=== PATIENT | female | born 1985 | race Caucasian/White ===

== ENCOUNTER 2021-12-13 10:13 | Day surgery (SDC) | payer BC ==
[2021-12-12 09:13] LABS: BASOPHILS % (AUTO) 0.4 % (0.0-2.0); EOSINOPHILS # (AUTO) 0.1 K/uL (0-0.4); EOSINOPHILS % (AUTO) 1.3 % (0.0-4.0); HEMATOCRIT 39.3 % (36-48); HEMOGLOBIN 12.7 g/dL (12.0-16.0); LYMPHOCYTES # (AUTO) 1.7 K/uL (2.5-16.5); MEAN CORPUSCULAR HEMOGLOBIN 26 pg (27-31); MEAN CORPUSCULAR HGB CONC 32 g/dL (33-37); MEAN CORPUSCULAR VOLUME 80.2 fL (80-94); MONOCYTES # (AUTO) 0.3 K/uL (0.8-1.0); MONOCYTES % (AUTO) 4.9 % (1.7-9.3); NEUTROPHILS # (AUTO) 3.3 K/uL (1.8-7.7); NEUTROPHILS % (AUTO) 62.4 % (42.2-75.2); PLATELET COUNT (AUTO) 256 K/uL (140-450); RED BLOOD CELL COUNT(AUTO) 4.91 MIL/uL (4.20-5.40); RED CELL DISTRIBUTION WIDTH 15.4 % (11.6-13.7); WHITE BLOOD COUNT (AUTO) 5.3 K/uL (4.8-10.8)
[2021-12-12 09:35] LABS: ALBUMIN 3.9 g/dL (3.4-5.0); CARBON DIOXIDE 28.1 mmol/L (21-32); CREATININE 0.6 mg/dL (0.6-1.3); POTASSIUM 4.1 mmol/L (3.5-5.1); TOTAL BILIRUBIN 0.3 mg/dL (0.0-1.0)
[~2021-12-13] VITALS: Ht 160 cm; Wt 60.3 kg
[2021-12-13] MEDS ORDERED: SEVOFLURANE 250 ML BTL INH ONE (13:25)
[2021-12-13] MEDS ORDERED: PROPOFOL 200 MG/20 ML VIAL IV ONE (13:27)
[2021-12-13] MEDS ORDERED: fentaNYL citrate 0.05 MG/ML VIAL ONE (13:27)
[2021-12-13] MEDS ORDERED: BUPIVACAINE-MPF 0.25% 30 ML VIAL INJ ONE (13:30)
[2021-12-13] MEDS ORDERED: DEXAMETHASONE 4 MG/ML VIAL ONE (13:39)
[2021-12-13] MEDS ORDERED: ONDANSETRON 4 MG/2 ML VIAL ONE (13:39)
[2021-12-13] MEDS ORDERED: MEPERIDINE 25 MG/ML SYR ONE (13:47)
== END 2021-12-13 15:45 | disposition home or self-care (01) ==
LOC: MDS 10:13 → MMU 10:13 → MDS 15:45
PROVIDERS: ATTEND Surgery
DX: N63.10 Unspecified lump in the right breast, unspecified quadrant (principal); D24.1 Benign neoplasm of right breast; Z98.890 Other specified postprocedural states; Z79.899 Other long term (current) drug therapy; Z20.822 Contact with and (suspected) exposure to COVID-19
CPT/HCPCS: 19120; 36415; 71045; 76641; 80053; 81025; 85025; 87426; 88307; J0690; J1100; J2175; J2405; J2704; J3010; J3490; J7060; Q0092